=== PATIENT | female | born 1990 | race Caucasian/White ===

== ENCOUNTER 2018-02-20 03:28 | Inpatient (IN) ==
[2018-02-20] MEDS ORDERED: CALCIUM CARBONATE Chewable 500mg TABLET PO PRN (05:43)
[2018-02-20] MEDS ORDERED: LIDOCAINE 1% (10mg/ml) 2mL INJ PF SDV ID PRN (05:43)
[2018-02-20] MEDS ORDERED: ACETAMINOPHEN 500 MG TABLET PO PRN (05:43)
[2018-02-20] MEDS ORDERED: D5LR 1,000 ML IV PRN (05:43)
[2018-02-20] MEDS ORDERED: METHYLERGONOVINE 0.2 MG/ML INJECTION IM PRN (05:43)
[2018-02-20] MEDS ORDERED: CARBOPROST 250 MCG/ML INJECTION IM PRN (05:43)
[2018-02-20] MEDS ORDERED: MAG-AL + SIM ORAL LIQUID 30ml PO PRN (05:43)
[2018-02-20] MEDS ORDERED: OXYTOCIN DRIP 30 UNIT/500 ML ML IV PRN (05:43)
--- OUTSIDE RECORDS SUMMARY | 2018-02-20 06:07 | External Medical Summary | Continuity of Care Document ---
:1990 Author Organization [facility] [employer] Address [address] [place], [place] [id number] Phone Care Team Providers Name Role Phone Ana Denny Unavailable Unavailable Allergies, Adverse Reactions, Alerts Substance Reaction Severity Status No Known Drug Allergies Unknown Active Medications Medication Instructions Dosage Effective Dates (start - Status Comments stop) Gummy 400 mcg-35 - Active mg-25 mg-5 mg chewable tablet Problems Condition Effective Dates (start - stop) Clinical Status Encntr for suprvsn of normal first - preg, second trimester 16 weeks gestation of - Encntr for suprvsn of normal first - preg, first trimester 9 weeks gestation of - Encntr for suprvsn of normal first - preg, first trimester 12 weeks gestation of - Encntr for suprvsn of normal first - preg, first trimester 12 weeks gestation of - Procedures Procedure Date OB Visit No Charge Results Test Name Date and Time Measure Units Reference Range Abnormal Flag Comments Unknown Advance Directives Directive Yes / No Effective Date File Name Unknown Encounters Encounter Practice Location Reason(s) Diagnoses Date Provider Care Team Description For Visit Members Magdaleno Gong Encntr for Simpson In Sample6 suprvsn of -2016 [facility] [place], normal Medical [address], first preg, Center Mirtha Mar[place], second [place] 120, [id number], [email or web address] Gong, [place] weeks [place], tel:[phone] gestation [id number], [address] of [place]. tel:[phone] Magdaleno Gong Encntr for Yessy Referring In [facility] Luzmaria. Provider: Health JOSE RAUL normal 700 Ashley Simpson [address], first preg, Medical [place], VERONICA Tobias, first Center , Ceci [id number], [email or web address] [place] [address], Center Dr [place] weeks Gong, [place] 120, tel:[phone] gestation [place], [place], [address] of [id number], [place], [place]. [id number]. tel:[phone] tel:[phone] Magdaleno Gong Encntr for Simpson In [facility] Ul[facility] Ashley. 700 Health JOSE RAUL, normal Medical [address], first preg, Center Mirtha [place], first [place] 120, [id number], [email or web address] Gong, [place] weeks [place], tel:[phone] gestation [id number], [address] of [place]. tel:[phone] Magdaleno Gong Encntr for Simpson In [facility] Ashley. 700 Health [place], normal Medical [address], first preg, Center Mirtha [place], first [place] 120, [id number], [email or web address] [place]ong, [place] weeks [place], tel:[phone] gestation [id number], [address] of [place]. tel:[phone] Family History Family Member Diagnosis Age At Onset Father Hypertension Paternal Grandfather Hypertension Father Diabetes Paternal Grandfather Diabetes No family history of Colon Cancer No family history of Pulmonary Embolism Maternal Grandfather Cardiovascular Disease Maternal Grandfather Osteoporosis No family history of Ovarian Cancer Paternal Grandmother Breast Cancer No family history of Uterine Cancer Paternal Grandmother Thyroid Disorder No family history of Venous Thrombosis Immunizations Vaccine Date Status Comments Influenza, injectable, completed Source: New Immunization Record quadrivalent, preservative free, 3 yrs or older Payers Payer name Insurance type Covered republican ID Authorization(s) [facility] - [id number] Medicaid [facility] [id number] Medicaid Social History Type Description Quantity Date Captured Alcohol Use Details No Caffeine Use Details Unknown Tobacco Use Status Unknown Smoking Status Never smoker Vital Signs Date / Height Weight BMI Pulse Blood Temperature Respiratory Body Head BMI Time: Rate Pressure Rate Surface Circumference percentile Area 118.20 20.9 104/69 2017 lbs 4 mm[Hg] 8:34 kg/m AM eter (2) Chief Complaint And Reason For Visit Unknown Chief Complaint And Reason For Visit Reason For Referral Reason For Referral Unknown Plan Of Care Date Type Action Status Appointment Olga Salinas BOOKED Appointment Olga Salinas BOOKED Future Order: Radiology Order Nuchal Translucency ([id number]) Ordered Date Type Problem Goal Intervention Status Start Date Unknown. History Of Present Illness Encounter Date Complaint History Of Present Illness This patient has no known history of present illness Functional Status Encounter Date Functional Assessment Cognitive Assessment Unknown Medications Administered Medication Instructions Dosage Effective Dates (start - stop) Status Comments Drug Treatment Unknown Instructions Date Instruction Additional Information HIV and other routine tests risk factors identified by history anticipated course of care nutrition and weight gain counseling, special diet toxoplasmosis precautions (cats / raw meat) exercise indications for ultrasound environmental / work hazards travel tobacco (ask, advise, assess, assist and arrange) alcohol illicit / recreational drugs use of any medications (including supplements, vitamins, herbs, OTC drugs) smoking counseling domestic violence seat belt use genetic testing new ob handbook Zika virus assessment & precautions dentist, wt gain 25-35#
--- OUTSIDE RECORDS SUMMARY | 2018-02-20 06:07 | External Medical Summary | Continuity of Care Document ---
:1990 Author Organization [facility] Address [address] [place], [place] [id number] Phone Care Team Providers Name Role Phone [...] Procedures Procedure Date OB Visit No Charge - TORPEDOMAN'S MATE Immuniz admnin, 1 vac, sngl/combo 19 Yrs + Flu Vaccine - Quadrivalent Results Test Name Date and Time Measure Units Reference Range Abnormal Flag Comments Unknown Advance Directives Directive Yes / No Effective Date File Name Unknown Encounters Encounter Practice Location Reason(s) Diagnoses Date Provider Care Team Description For Visit Members Associates Bel[place]an Encntr for Yessy Referring In [facility] suprvsn of Luzmaria. Provider: John BLUNT, tiffanie 700 Ashley Simpson [address], first preg, Medical K, 700 [place], [place], [facility] Ceci Marino [id number], [address], [place] corina Gong, [place] 120, tel:[phone] gestation [place], [place]ong, [address] of [id number], [place], [place]. [id number]. tel: tel:[phone] Magdaleno Gong Encntr for Simpson In [facility] Ultrasound [facility] Ashley. 700 Health [place], normal Medical [address], first preg, Center Mirtha [place], first [place] 120, [id number], [email or web address] Gong, [place] weeks [place], tel:[phone] gestation [id number], [address] of [place]. tel:[phone] Magdaleno Gong Encntr for Simpson In [facility] Ashley. 700 Health [place], normal Medical [address], first preg, Center Mirtha [place], first [place] 120, [id number], [email or web address] Gong, [place] weeks [place], tel:[phone] gestation [id number], [address] of [place]. tel:[phone] Family History Family Member Diagnosis Age At [...] older Payers Payer name Insurance type Covered green party ID Authorization(s) [facility] [id number] Medicaid [facility] [id number] Medicaid Social History Type Description Quantity Date Captured Alcohol Use Details No Caffeine Use Details Unknown Tobacco Use Status Unknown Smoking Status Never smoker Vital Signs Date / Height Weight BMI Pulse Blood Temperature Respiratory Body Head BMI Time: Rate Pressure Rate Surface Circumference percentile Area 113.00 20.0 lbs 2 mm[Hg] 10:05 kg/m AM eter (2) Chief Complaint And Reason For Visit Unknown Chief Complaint And Reason For Visit Reason For Referral Reason For Referral Unknown Plan Of Care Date Type Action Status Appointment Olga Salinas BOOKED Future Order: Radiology Order Nuchal Translucency ([id number]) Ordered Date Type Problem Goal Intervention Status [...]
--- OUTSIDE RECORDS SUMMARY | 2018-02-20 06:07 | External Medical Summary | Continuity of Care Document ---
:1990 Author Organization [facility] Address [address] [place] [id number] Phone Care Team Providers Name Role Phone [...] of normal first - preg, second trimester 23 weeks gestation of - Encntr for suprvsn of normal first - preg, first trimester 9 weeks gestation of - Encntr for suprvsn of normal first - preg, first trimester 12 weeks gestation of - Encntr for suprvsn of normal first - preg, first trimester 12 weeks gestation of - Encntr for suprvsn of normal first - preg, second trimester 19 weeks gestation of - Encntr for suprvsn of normal first - preg, second trimester 16 weeks gestation of - Encntr for suprvsn of normal first - preg, second trimester 26 weeks gestation of - Encntr for suprvsn of normal first - preg, second trimester 19 weeks gestation of - Procedures Procedure Date OB Visit No Charge Results Test Name Date and Time Measure Units Reference Range Abnormal Flag Comments Unknown Advance Directives Directive Yes / No Effective Date File Name Unknown Encounters Encounter Practice Location Reason(s) Diagnoses Date Provider Care Team Description For Visit Members Magdaleno Gong Encntr for Simpson In [facility] Ashley. 700 Health [place], normal Medical [address], first preg, Center Mirtha [place], second [place] 120, [id number], [email or web address] Gong, [place] weeks [place], tel:[phone] gestation [id number], [address] of [place]. tel:[phone] Magdaleno Gong Encntr for Simpson In [facility] Ashley. 700 Health [place], normal Medical [address], first preg, Center Mirtha [place], second [place] 120, [id number], [email or web address] Gong, [place] weeks [place], tel:[phone] gestation [id number], [address] of [place]. tel:[phone] Magdaleno Gong Encntr for Simpson In [facility] Ashley. 700 Health [place], normal Medical [address], first preg, [place] Mirtha [place], second [place] 120, [id number], [email or web address] Gong, [place] weeks [place], tel:[phone] gestation [id number], [address] of [place]. tel:[phone] Magdaleno Gong [facility]tr [facility] In [facility] [place]. 700 Health [place], normal Medical [address], first preg, Center Mirtha [place], second [place] [address], [id number], [email or web address] Gong, [place] weeks [place], tel:[phone] gestation [id number], [address] of [place]. tel:[phone] Magdaleno Gong Encntr for Simpson In [facility] Ashley. 700 Health [place], normal Medical [address], first preg, Center Mirtha [place], second [place] [address], [id number], [email or web address] Gong, [place] weeks [place], tel:[phone] gestation [id number], [address] of [place]. tel:[phone] Magdaleno Gong Encntr for Yessy Referring In [facility] Luzmaria. Provider: Health JOSE RAUL, normal 700 Ashley Simpson [address], first preg, Medical [place], VERONICA Tobias, [facility] Center , Ceci [id number], [email or web address] [address], Center Dr [place] weeks [place]ong, [place] 120, tel:[phone] gestation [place], [place], [address] of [id number], [place], [place]. [id number]. tel:[phone] tel:[phone] Magdaleno Gong Encntr for Simpson In [facility] Ultras[facility] Ashley. 700 Health [place], normal Medical [address], first preg, Center Mitrha Mar[place], first [place] 120, [id number], [email or web address] Gong, [place] weeks [place], tel:[phone] gestation [id number], [address] of [place]. tel:[phone] Magdaleno Gong Encntr for Simpson In [facility] Ashley. 700 Health [place], normal Medical [address], first preg, Center Mirtha [place], first [place] 120, [id number], [email or web address] Gong, [place] weeks [place], tel:[phone] gestation [id number], [address] of [place]. tel:[phone] Family History Family Member Diagnosis Age At [...] older Payers Payer name Insurance type Covered constitution party ID Authorization(s) [facility] [id number] Medicaid [facility] [id number] Medicaid Social History Type Description Quantity Date Captured Alcohol Use Details No Caffeine Use Details Unknown Tobacco Use Status Unknown Smoking Status Never smoker Vital Signs Date / Height Weight BMI Pulse Blood Temperature Respiratory Body Head BMI Time: Rate Pressure Rate Surface Circumference percentile Area 126.70 22.4 94/2017 lbs 4 mm[Hg] 2:53 kg/m PM eter (2) Chief Complaint And Reason For Visit Unknown Chief Complaint And Reason For Visit Reason For Referral Reason For Referral Unknown Plan Of Care Date Type Action Status Appointment Olga Salinas BOOKED Future Order: Radiology Order Nuchal Translucency ([id number]) Ordered Future Order: Radiology Order Complete OB Ultrasound > 14 Ordered Weeks ([id number]) Date Type Problem Goal Intervention Status Start Date Unknown. History Of Present Illness Encounter Date Complaint History Of Present Illness This patient has no known history of present illness Functional Status Encounter Date Functional Assessment Cognitive Assessment Unknown Medications Administered Medication Instructions Dosage Effective Dates (start - stop) Status Comments Drug Treatment Unknown Instructions Date Instruction Additional Information gestational glucose lab screening HIV and other routine tests risk factors [...]
--- OUTSIDE RECORDS SUMMARY | 2018-02-20 06:07 | External Medical Summary | Continuity of Care Document ---
:1990 Author Organization [facility] Address [address] [place], [place] [address] Phone Care Team Providers Name Role Phone [...] weeks gestation of - Procedures Procedure Date Ultrasound, Nuchal Translucency Measurement Results Test Name Date and Time Measure Units Reference Range Abnormal Flag Comments Unknown Advance Directives Directive Yes / No Effective Date File Name Unknown Encounters Encounter Practice Location Reason(s) Diagnoses Date Provider Care Team Description For Visit Members Magdaleno Gong Encntr for Yessy Referring In [facility] suprvsn of -2016 Luzmaria. Provider: John BLUNT, normal 700 Ashley Simpson [address], first preg, Medical K, 700 [place], [facility] Center [address] Medical [id number], [email or web address] [address] 120, Center [place] weeks Bel[place], [place] 120, tel:[phone] gestation Bel[place]an MARTIN, [address] of [id number], [place], [place]. [id number]. tel:[phone] tel:[phone] Magdaleno Gong Encntr for Simpson In [facility]omens Ul[facility] Ashley. 700 Health [place], normal Medical [address], first preg, Center Mirtha [place], first [place] 120, [id number], [email or web address] Gong, [place] weeks [place], tel:[phone] gestation [id number], [address] of [place]. tel:[phone] Magdaleno Gong Encntr for Simspon In [facility]om[facility] Ashley. 700 Health [place], normal Medical [address], first preg, Center Mirtha [place], first [place] 120, [id number], [email or web address] Gong, [place] weeks [place], tel:[phone] gestation [id number], [address] of [place]. tel:[phone] Family History Family Member Diagnosis Age At [...] name Insurance type Covered republican ID Authorization(s) [facility] [id number] Medicaid [facility] [id number] Medicaid Social History Type Description Quantity Date Captured Unknown Vital Signs Date / Height Weight BMI Pulse Blood Temperature Respiratory Body Head BMI Time: Rate Pressure Rate Surface Circumference percentile Area Unknown Chief Complaint And Reason For Visit Unknown Chief Complaint And Reason For Visit Reason For Referral Reason For Referral Unknown Plan Of Care Date Type Action Status Appointment Olga Salinas BOOKED Future Order: Radiology Order Nuchal Translucency ([id number]) Ordered Date Type Problem Goal Intervention Status [...]
--- OUTSIDE RECORDS SUMMARY | 2018-02-20 06:07 | External Medical Summary | Continuity of Care Document ---
:1990 Author Organization [facility] Address [address] [place], [place] [id number] Phone Care Team Providers Name Role Phone Ana Denny Unavailable Unavailable Allergies, Adverse Reactions, Alerts Substance Reaction Severity Status No Known Drug Allergies Unknown Active Medications Medication Instructions Dosage Effective Dates (start - Status Comments stop) Gummy 400 mcg-35 - Active mg-25 mg-5 mg chewable tablet Problems Condition Effective Dates (start - stop) Clinical Status Encntr for suprvsn of normal first - preg, third trimester 29 weeks gestation of - Encntr for suprvsn of normal first - preg, first trimester 9 weeks gestation of - Matern care for oth or susp poor fetl - grth, third tri, unsp 31 weeks gestation of - Encntr for suprvsn [...] for suprvsn of normal first - preg, third trimester 31 weeks gestation of - Procedures Procedure Date OB Visit No Charge Results Test Name Date and Time Measure Units Reference Range Abnormal Flag Comments Unknown Advance Directives Directive Yes / No Effective Date File Name Unknown Encounters Encounter Practice Location Reason(s) Diagnoses Date Provider Care Team Description For Visit Members Magdaleno Gong Encntr for Simpson [facility] Ashley. 700 Provider: Health JOSE RAUL normal Medical Ashley Simpson [address], first preg, Center N[place] Marino, 700 [place], [place], third [address] 120, Medical [id number], [email or web address] [place] weeks [place], [place] 120, tel:[phone] gestation [id number], Gong, [address] of [place]. [place], tel:[phone]. [id number] tel:[phone] Magdaleno Gong Matern care Simpson In [facility] Ultrasound for oth or -2017 Ashley. 700 Health JOSE RAUL, susp poor Medical [address], fetl grth, [place] Mirtha Marino, [place], third tri, [place] 120, [id number], [email or web address] Gong, [place] weeks [place], tel:[phone] gestation [id number], [address] of [place]. tel:[phone] Magdaleno Gong Encntr for Simpson In [facility] Ashley. 700 Health JOSE RAUL, normal Medical [address], first preg, Center Mirtha Marino [place], third [place] 120, [id number], [email or web address] Gong, [place] weeks [place], tel:[phone] gestation [id number], [address] of [place]. tel:[phone] Magdaleno Gong Encntr for Simpson In [facility] Ashley. 700 Health JOSE RAUL normal Medical [address], first preg, Center Mirtha [place], second [place] 120, [id number], [email or web address] Gong, [place] weeks [place], tel:[phone] gestation [id number], [address] of [place]. tel:[phone] Magdaleno Gong Encntr for Simpson In [facility] Ashley. 700 Health [place], normal Medical [address], first preg, Center Mirtha [place], second [place] 120, [id number], [email or web address] Gong, [place] weeks [place], tel:[phone] gestation [id number], [address] of [place]. tel:[phone] Magdaleno Gong Encntr for Simpson In [facility] Ashley. 700 Health [place], normal Medical [address], first preg, Center Mirtha [place], second [place] 120, [id number], Gong, [place] weeks [place], tel:[phone] gestation [id number], [address] of [place]. tel:[phone] Magdaleno Gong Encntr for Simpson In [facility] Ultrasound [facility] Ashley. 700 Health [place], normal Medical [address], first preg, Center Mirtha [place], second [place] 120, [id number], [email or web address] Gong, [place] weeks [place], tel:[phone] gestation [id number], [address] of [place]. tel:[phone] Magdaleno Gong Encntr for Simpson In [facility] Ashley. 700 Health JOSE RAUL, normal Medical [address], first preg, Center Mirtha [place], second [place] 120, [id number], [email or web address] Gong, [place] weeks [place], tel:[phone] gestation [id number], [address] of [place]. tel:[phone] Magdaleno Gong Encntr for Yessy Referring In [facility] Luzmaria. Provider: Health JOSE RAUL normal 700 Ashley Simpson [address], first preg, Medical [place], VERONICA Tobias, [facility] Ceci Marino , [email or web address] [address] 120, Center [place] weeks Gong, [place] 120, tel:[phone] gestation [place], Gong, [address] of [id number], [place], [place]. [id number]. tel: tel:[phone] Magdaleno Gong Encntr for Simpson In [facility] Ashley. 700 Health [place], normal Medical [address], first preg, Center Mirtha Mar[place], first [place] 120, [id number], [email or web address] Gong, [place] weeks [place], tel:[phone] gestation [id number], [address] of [place]. tel:[phone] Magdaleno Gong Encntr for Simpson [facility] Ashley. 700 Health [place], normal Medical [address], first preg, Center Mirtha Mar[place], first [place] 120, [id number], [email or web address] Gong, [place] weeks [place], tel:[phone] gestation [id number], [address] of [place]. tel:[phone] Family History Family Member Diagnosis Age At [...] Venous Thrombosis Immunizations Vaccine Date Status Comments Tdap completed Source: New Immunization Record Influenza, injectable, completed Source: New Immunization Record quadrivalent, preservative free, 3 yrs or older Payers Payer name Insurance type Covered alliance party ID Authorization(s) [facility] - [id number] Medicaid [facility] - [id number] Medicaid [facility] [place] [id number] Medicaid Social History Type Description Quantity Date Captured Alcohol Use Details No Caffeine Use Details Unknown Tobacco Use Status Unknown Smoking Status Never smoker Vital Signs Date / Height Weight BMI Pulse Blood Temperature Respiratory Body Head BMI Time: Rate Pressure Rate Surface Circumference percentile Area 136.60 24.2 lbs 0 2:40 kg/m PM eter (2) 136.60 24.2 lbs 0 mm[Hg] 2:52 kg/m PM eter (2) Chief Complaint And Reason For Visit Unknown Chief Complaint And Reason For Visit Reason For Referral Reason For Referral Unknown Plan Of Care Date Type Action Status Appointment Olga Salinas BOOKED Future Order: Radiology Order Ultrasound OB Follow-up ([id number]) Ordered Future Order: Radiology Order Nuchal Translucency ([id number]) Ordered Future Order: Radiology Order Complete OB Ultrasound > 14 Ordered Weeks ([id number]) Date Type Problem Goal Intervention Status Start [...] ob handbook Zika virus assessment & precautions dentistfrank gain 25-35#
--- OUTSIDE RECORDS SUMMARY | 2018-02-20 06:08 | External Medical Summary | Continuity of Care Document ---
:1990 Author Organization Via [facility] Allergies Active Description Code Type Severity Reaction Onset Reported/ Identified Relationship Clinical to Patient Status Yes No Known 38094 3 N/A N/A Drug 0 Allergies Yes No Known NKMA N/A N/A 08/16/2014 Medication Allergies Yes No Known No Aller N/A N/A 12/06/2016 Allergies Known gy Aller gies Yes No Known Aller Unknown N/A 08/29/2017 Allergies gy Medications Medication Packaging Start Date Stop Date Route Dosage Sig 1 tabs 05/09/2014 08/16/2014 Oral 7.5 mg meloxicam(Mobic 1 tabs, 7.5 mg oral Oral, BID tablet) 05/09/2014 08/16/2014 Oral 50 mg traMADol(traMADo 50 mg, l) Oral, q6hr 1 tabs 05/09/2014 05/19/2014 Oral HYDROcodone-acet 1 tabs, aminophen(Napanoch Oral, q4hr, 5 mg-325 mg oral 30 tabs, tablet) PRN: as needed for pain 1 tabs 05/09/2014 05/19/2014 Oral 10 mg cyclobenzaprine( 1 tabs, cyclobenzaprine Oral, TID, 10 mg oral 30 tabs, tablet) PRN: as needed for spasm 2 tabs 08/16/2014 Oral 400 mg ibuprofen(ibupro 2 tabs, fen 200 mg oral Oral, q4hr, tablet) 120 tabs, PRN: as needed for pain 1 tabs 04/03/2017 04/10/2017 Oral 500 mg metroNIDAZOLE(me 500 mg=1 troNIDAZOLE 500 tabs, Oral, mg oral tablet) q8hr, for 7 days, 21 tabs, 0 Refill(s) 1 tabs 04/03/2017 04/03/2017 Oral 150 mg fluconazole(Difl 150 mg=1 ucan 150 mg oral tabs, Oral, tablet) Once, 1 tabs, 0 Refill(s) 08/29/2017 PO 1 each DAILY Vitamins Problems Date Dx Attending Type Code Diagnosis Diagnosed By Coded 04/03/2017 Ana Young Final R35.0 Frequency of micturition 08/18/2017 Ashley Frausto Z34.01 Encntr for suprvsn of normal first preg, first trimester 08/18/2017 Ashley Frausto Z3A.12 12 weeks gestation of 08/18/2017 Luzmaria Krishnamurthy Z34.01 Encntr for suprvsn L of normal first preg, first trimester 08/18/2017 Luzmaria Krishnamurthy Z3A.12 12 weeks gestation L of 08/29/2017 EAGLEWARDADDISONDA H60.90 Unspecified otitis EAGLESON, ALEENA M HOSPITALITY 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 externa, M HOSPITALITY HOUSEKEEPER unspecified ear 08/29/2017 ADDISON DAVISDA H60.91 Unspecified otitis EAGLESON, ALEENA M HOSPITALITY HOUSEKEEPER externa, right ear M HOSPITALITY HOUSEKEEPER 10/08/2017 Ashley Frausto Z34.02 Encntr for suprvsn of normal first preg, second trimester 10/08/2017 Ashley Frausto Z3A.19 19 weeks gestation of 12/31/2017 Ashley Frausto O36.5930 Matern care for oth or susp poor fetl grth, third tri, unsp 12/31/2017 Ashley Frausto Z3A.31 31 weeks gestation of Procedures Code Description [place] [address] Culture, 04/03/2017 bacterial; any other source except urine, blood or stool, aerobic, with isolation and presumptive identification of isolates.. 24252 Smear, primary 04/03/2017 source with interpretation; wet mount for infectious agents (eg, saline, Nannette ink, NABOR preps) 21662 Infectious 04/03/2017 agent detection by nucleic acid (DNA or RNA); Chlamydia trachomatis, amplified probe technique.. 63805 Infectious 04/03/2017 agent detection by nucleic acid (DNA or RNA); Neisseria gonorrhoeae, amplified probe technique.. 53591 Periodic 04/03/2017 comprehensive preventive medicine reevaluation and management of an individual including an age and gender appropriate history, examination, counseling/anticipatory guidance/risk factor reduc 37548 Ultrasound, 08/18/2017 Nuchal Translucency Measurement 56238 OB Visit No 08/18/2017 Charge 04394 Ultrasnd exam 10/08/2017 of preg uterus, compl 14912 Ultrasnd preg 12/31/2017 uterus, flwup/repeat Results Test Result Range L905.0615 - 12/06/16 16:03 LSTREPAT-C NEGATIVE NEGATIVE M750.4390 - 12/06/16 16:21 GASTRIN - AMS Source: Throat Collected: 12/06/16 16:21 Hanging Drop - 04/03/17 15:47 Clue Cells Hanging Drop 20 %/epis Epithelials Hanging Drop >50 /LPF Trichomonas Hanging Drop None seen /HPF WBC Hanging Drop 10 /HPF Yeast Hanging Drop Rare /HPF Collection Site vaginal NA Encounters ACCT No. Visit Discharge Status Pt. Type Provider Facility Loc./Unit Complaint Date/Time [id number] 09/12/2013 09/12/2013 CLS Outpatien 13:35:00 23:59:59 adan [id number] 02/16/2018 02/16/2018 CLS Outpatien Frausto, 13:45:00 23:59:59 t Ashley Vaca [id number] 02/10/2018 02/10/2018 CLS Outpatien Frausto, 13:15:00 23:59:59 t Ashley Nola [id number] 02/03/2018 02/03/2018 CLS Outpatien Sobbing, 14:40:00 23:59:59 t Candelario Das [id number] 01/27/2018 01/27/2018 CLS Outpatien Frausto, 14:45:00 23:59:59 adan Vaca [id number] 01/14/2018 01/14/2018 CLS Outpatien Frausto, 13:50:00 23:59:59 adan NashAshley Nola [id number] 12/31/2017 12/31/2017 CLS Outpatien Frausto, 13:50:00 23:59:59 adan NashAshley Nola [id number] 12/31/2017 12/31/2017 CLS Outpatien Frausto, 13:15:00 23:59:59 adan NashAshley Nola [id number] 12/17/2017 12/17/2017 CLS Outpatien Frausto, 14:30:00 23:59:59 adan Vcaa [id number] 11/26/2017 11/26/2017 CLS Outpatien Frausto, 13:40:00 23:59:59 adan Vaca [id number] 11/05/2017 11/05/2017 CLS Outpatien Frausto, 14:45:00 23:59:59 t Aslhey Vaca [id number] 10/08/2017 10/08/2017 CLS Outpatien Frausto, 13:40:00 23:59:59 t Ashley Vaca [id number] 10/08/2017 10/08/2017 CLS Outpatien Frausto, 12:45:00 23:59:59 t Ashley Vaca [id number] 09/16/2017 09/16/2017 CLS Outpatien Frausto, 08:30:00 23:59:59 t Ashley Vaca [id number] 08/28/2017 08/28/2017 CLS Outpatien Frausto, 10:08:00 23:59:59 t Ashley Vaca [id number] 08/18/2017 08/18/2017 CLS Outpatien Yessy, 10:00:00 23:59:59 adan Das [id number] 08/18/2017 08/18/2017 CLS Outpatien Frausto, 09:45:00 23:59:59 t Ashley Vaca [id number] 07/28/2017 07/28/2017 CLS Outpatien Frausto, 14:00:00 23:59:59 adan Vaca [id number] 08/29/2017 08/29/2017 DIS Outpatien DRUSON, [employer] 30 16:59:00 18:52:00 adan [facility] HOSPITALITY HOUSEKEEPER [id number] 12/06/2016 12/06/2016 DIS Emergency Beltran GRANT CCC.NEW 40 16:00:00 16:30:00 [facility] HOSPITALITY HOUSEKEEPER Center [id number] 02/26/2018 PEN Preadcandy FRAUSTO MD, 27 00:00:00 ASHLEY Vaca [id number] 04/04/2017 Document 1556 05:15:56 Registrat ion [id number] 09/06/2015 Document 5825 09:58:25 Registrat ion [id number] 09/06/2015 Document 0935 09:09:35 Registrat ion [id number] 04/03/2017 04/03/2017 DIS Outpatien Tandoc, Via [facility] [employer] 39 14:20:00 23:59:00 t Ana Velasquez [facility]
--- OUTSIDE RECORDS SUMMARY | 2018-02-20 06:08 | External Medical Summary | Continuity of Care Document ---
:1990 Author Organization [facility] Address [address] [place], [place] [phone] Phone Care Team Providers Name Role Phone [...] second trimester 16 weeks gestation of - Procedures Procedure Date Unknown Results Test Name Date and Time Measure Units Reference Range Abnormal Flag Comments Unknown Advance Directives Directive Yes / No Effective Date File Name Unknown Encounters Encounter Practice Location Reason(s) Diagnoses Date Provider Care Team Description For Visit Members Magdaleno Gong Encntr for Simpson In [facility] suprvsn of [employer] [place], normal Medical [address], first preg, [place], second [place], [id number], [email or web address] [place], [place] weeks [place], tel:[phone] gestation [id number], [id number] of [place]. tel:[phone] Magdaleno Gong Simpson In [facility] Ashley. [address] [facility] [place], Medical [address], Center [place], [place], [id number], [place], [place], tel:[phone] [id number], [id number] [place]. tel:[phone] Magdaleno Gong Encntr for Yessy Referring In [facility] Luzmaria. Provider: Health JOSE RAUL normal 700 Ashley Simpson [address], first preg, Medical [place], 700 [place], first Center , [facility] [id number], [email or web address] [place] [address], Center Dr [place] weeks [place], [place], tel:[phone] gestation [place], [place], [address] of [id number], [place], [place]. [id number]. tel:[phone] tel:[phone] Magdaleno Gong [facility] Ashley. [address] [facility] JOSE RAUL, normal Medical [address], first preg, Center [place], first [place], [id number], [email or web address] [place], [place] weeks [place], tel:[phone] gestation [id number], [address] of [place]. tel:[phone] Magdaleno Gong Encntr for [place] In [facility] Ashley. 700 Health JOSE RAUL, normal Medical [address], first preg, Center [place], first [place], [id number], [email or web address] [place], [place] weeks [place], tel:[phone] gestation [id number], [address] of [place]. tel:[phone] Family History Family Member Diagnosis Age At [...] older Payers Payer name Insurance type Covered democrat ID Authorization(s) [facility] [id number] Medicaid [facility] - [id number] Medicaid Social History Type Description Quantity Date [...] BOOKED Future Order: Radiology Order Nuchal Translucency (79105) Ordered Date Type Problem Goal Intervention Status [...]
--- OUTSIDE RECORDS SUMMARY | 2018-02-20 06:08 | External Medical Summary | Continuity of Care Document ---
:1990 Author Organization [facility] Address [address] [place] [phone] Phone Care Team Providers Name Role Phone [...] Members Magdaleno Gong Encntr for Simpson In [employer] suprvsn of [facility] [place], normal Medical [address], first preg, Center [place], second [place], [id number], [email or web address] [place], [place] weeks [place], tel:[phone] gestation [id number], [address] of [place]. tel:[phone] Magdaleno Gong Encntr for [place] In [facility] Ashley. [address] [facility] JOSE RAUL, normal Medical [address], first preg, Center [place], second [place], [id number], [place], [place] weeks [place], tel:[phone] gestation [id number], [address] of [place]. tel:[phone] Magdaleno Gong Encntr for [place] In [facility] Ashley. 700 Health JOSE RAUL, normal Medical [address], first preg, Center [place], second [place], [id number], [email or web address] [place], [place] weeks [place], tel:[phone] gestation [id number], [address] of [place]. tel:[phone] Magdaleno Gong Encntr for Yessy Referring In [facility] Luzmaria. Provider: tiffanie Patel 700 Ashley Simpson [address], first [facility], [facility] [place], [place], first Center [facility] , [email or web address] [place], Center [place] weeks [place], [place] 120, tel:[phone] gestation [place], [place], [address] of [id number], [place], [place]. [id number]. tel:[phone] tel:[phone] Magdaleno Gong Encntr for [place] In [facility] Ashley. 700 Health JOSE RAUL, normal Medical [address], first preg, Center [place], first [place], [id number], [email or web address] [place], [place] weeks [place], tel:[phone] gestation [id number], [address] of [place]. tel:[phone] Magdaleno Gong Encntr for Simpson In [facility] Ashley. 700 Health JOSE RAUL, normal Medical [address], first preg, Center [place], first [place], [id number], [email or web address] [place], [place] weeks [place], tel:[phone] gestation [id number], [address] of [place]. tel:[phone] Family History Family Member Diagnosis Age At [...] Insurance type Covered alliance party ID Authorization(s) [facility] - [id number] Medicaid [facility] - [id number] Medicaid Social History Type Description Quantity Date Captured Alcohol Use Details No Caffeine Use Details Unknown Tobacco Use Status Unknown Smoking Status Never smoker Vital Signs Date / Height Weight BMI Pulse Blood Temperature Respiratory Body Head BMI Time: Rate Pressure Rate Surface Circumference percentile Area 121.60 21.5 / lbs 4 mm[Hg] 1:48 kg/m PM eter (2) Chief Complaint And Reason For Visit Unknown Chief Complaint And Reason For Visit Reason For Referral Reason For Referral Unknown Plan Of Care Date Type Action Status Appointment Olga Salinas BOOKED Future Order: Radiology Order Nuchal Translucency ([id number]) Ordered Future Order: Radiology Order Complete OB Ultrasound > 14 Ordered Weeks (51078) Date Type Problem Goal Intervention Status Start [...]
--- OUTSIDE RECORDS SUMMARY | 2018-02-20 06:08 | External Medical Summary | Continuity of Care Document ---
:1990 Author Organization [facility] Address [address] [place], [place] [phone] Phone Care Team Providers Name Role Phone [...] weeks gestation of - Procedures Procedure Date Ultrasound exam of preg uterus, complete Results Test Name Date and Time Measure Units Reference Range Abnormal Flag Comments Unknown Advance Directives Directive Yes / No Effective Date File Name Unknown Encounters Encounter Practice Location Reason(s) Diagnoses Date Provider Care Team Description For Visit Members Magdaleno Gong Encntr for Simpson In [employer] suprvsn of -2016 Ashley. [address] JOSE RAUL, normal Medical [address], first preg, Center Mir[place], second [place], [id number], [email or web address] [place], [place] weeks [place], tel:[phone] gestation [id number], [address] of [place]. tel:[phone] Magdaleno Gong Encntr for [place] In [facility] Ashley. 700 Health JOSE RAUL, normal Medical [address], first preg, Center [place], second [place], [id number], [email or web address] [place], [place] weeks [place], tel:[phone] gestation [id number], [address] of [place]. tel:[phone] Magdaleno Gong Encntr for Simpson In [facility] Ashley. 700 Health [place], normal Medical [address], first preg, Center [place], second [place] [address], [id number], [email or web address] [place], [place] weeks [place], tel:[phone] gestation [id number], [address] of [place]. tel:[phone] Magdaleno Gong Encntr for Yessy Referring In [facility] Luzmaria. Provider: tiffanie Patel 700 Ashley Simpson [address], first [facility], Ceci Vaca, VERONICA Tobias, first Center Ceci [place] , [email or web address] [place] [address], Center [place] weeks [place], [place], tel:[phone] gestation [place], [place], [address] of [id number], [place], [place]. [id number]. tel:316 tel:[phone] Magdaleno Gong Encntr for Simpson In [facility] Ashley. 700 Health JOSE RAUL, normal Medical [address], first preg, Center [place], first [place], [id number], [email or web address] [place], [place] weeks [place], tel:[phone] gestation [id number], [address] of [place]. tel:[phone] Magdaleno Gong Encntr for Simpson In [facility] Ashley. 700 [facility] [place], normal Medical [address], first preg, Center Mirtha [place], [place], first [place] [address], [id number], [email or web address] [place], [place] weeks [place], tel:[phone] gestation [id number], [address] of [place]. tel:[phone] Family History Family Member Diagnosis Age At [...] older Payers Payer name Insurance type Covered libertarian ID Authorization(s) [facility] [id number] Medicaid [facility] - [id number] Medicaid Social History Type Description Quantity Date [...] Olga Salinas BOOKED Future Order: Radiology Order Complete OB Ultrasound > 14 Ordered Weeks ([id number]) Future Order: Radiology Order Nuchal Translucency ([id number]) Ordered Date Type Problem Goal Intervention Status [...]
--- OUTSIDE RECORDS SUMMARY | 2018-02-20 06:08 | External Medical Summary | Referral Summary ---
:1990 Author Organization Via JOSE RAUL [facility] [place], [facility] Address [address] [place] [address] [place] [address] Care Team Providers Name Role Phone Karri Casey Primary Care Physician Encounter VC Date(s): 04/03/17 - 04/03/17 [facility] [place] [place] [address] [place] Discharge Diagnosis: Urinary frequency Discharge Disposition: 01-Home or Self Care Attending Physician: Ana Young APRN Admitting Physician: Ana Young APRN Vital Signs Most recent to oldest [Reference Range]: 1 Peripheral Pulse Rate [60-100 bpm] 73 bpm (04/03/17 2:28 PM) Blood Pressure [90-140/60-90 mmHg] 108/70 mmHg (04/03/17 2:28 PM) SpO2 98 % (04/03/17 2:28 PM) Problem List Condition Effective Dates Status Health Status Informant Asthma(Confirmed) Active Allergies, Adverse Reactions, Alerts No Known Medication Allergies Medications ibuprofen 200 mg oral tablet 2 tabs, Oral, q4hr, as needed for pain, # 120 tabs, 0 Refill(s) Start Date: 08/16/14 Status: OrderedmetroNIDAZOLE 500 mg oral tablet 500 mg 1 tabs, Oral, q8hr, X 7 days, # 21 tabs, 0 Refill(s), Pharmacy: [facility] #[id number], 1 tabs Oral q8hr,x7 days Start Date: 04/03/17 Stop Date: 04/10/17 Status: OrderedTransderm-Scop 1.5 mg transdermal film, extended release 1 patches, Topical, q72hr, as needed for motion sickness, # 4 Each, 0 Refill(s) , Pharmacy: [facility] #[id number] Start Date: 10/24/14 Status: Ordered Results No data available for this section Immunizations Given and Recorded Vaccine Date Status Refusal Reason tetanus/diphth/pertuss (Tdap) adult/adol 04/11/06 Recorded diphtheria/pertussis, acel/tetanus ped 06/07/96 Recorded hepatitis B pediatric vaccine 10/13/06 Recorded hepatitis B pediatric vaccine 05/12/06 Recorded hepatitis B pediatric vaccine 04/11/06 Recorded measles/mumps/rubella virus vaccine 06/07/96 Recorded poliovirus vaccine, live, trivalent 06/07/96 Recorded Procedures No data available for this section Social History Social History Type Response Smoking Status Never smoker Assessment and Plan Extracted from: Title: Office Visit Note Author: Ana Young APRN Date: 04/03/17 Assessment/Plan Urinary frequency Will obtain urinalysis to evaluate. Will call with results of culture when they become available. Recommended decreasedconsumption of caffeinated beverages Ordered: Periodic Comp Preventive Med 18 to 39 years Est 676[address] Vaginal discharge Patient doesnothave certainty about monogamousrelationship. Will await culturesand report findings when they become available Ordered: Chlamydia/GC Nucleic Acid Screen Genital Culture Hanging Drop Periodic Comp Preventive Med 18 to 39 years Est 89[address] Well female exam with routine gynecological exam Await Pap. Discussed safe sex practices,recommending that she use condoms forprotection from STDs. She does needtetanus booster. 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
--- OUTSIDE RECORDS SUMMARY | 2018-02-20 06:08 | External Medical Summary | Continuity of Care Document ---
:1990 Author Organization [facility] Address [address] [place] [phone] Phone Care Team Providers Name Role Phone [...] weeks gestation of - Procedures Procedure Date No Charge Sonogram Initial OB Visit No Charge Results Test Name Date and Time Measure Units Reference Range Abnormal Flag Comments Panel Description: OBSTETRIC PANEL WHITE BLOOD CELL 10.9 Thousand/uL 3.8-10.8 H COUNT 14:45:00 RED BLOOD CELL 3.83 Million/uL 3.80-5.10 N COUNT 14:45:00 HEMOGLOBIN 12.2 g/dL 11.7-15.5 N 14:45:00 HEMATOCRIT 34.5 % 35.0-45.0 L 14:45:00 MCV 90.1 fL 80.0-100.0 N 14:45:00 MCH 31.9 pg 27.0-33.0 N 14:45:00 MCHC 35.4 g/dL 32.0-36.0 N 14:45:00 RDW 11.3 % 11.0-15.0 N 14:45:00 PLATELET COUNT 230 Thousand/uL 140-400 N 14:45:00 MPV 10.9 fL 7.5-12.5 N 14:45:00 ABSOLUTE 8458 cells/uL 8975-0438 H NEUTROPHILS 14:45:00 ABSOLUTE 1602 cells/uL 850-3900 N LYMPHOCYTES 14:45:00 ABSOLUTE 676 cells/uL 200-950 N MONOCYTES 14:45:00 ABSOLUTE 120 cells/uL 15-500 N EOSINOPHILS 14:45:00 ABSOLUTE 44 cells/uL 0-200 N BASOPHILS 14:45:00 NEUTROPHILS 77.6 % N 14:45:00 LYMPHOCYTES 14.7 % N 14:45:00 MONOCYTES 6.2 % N 14:45:00 EOSINOPHILS 1.1 % N 14:45:00 BASOPHILS 0.4 % N 14:45:00 ANTIBODY SCREEN, NO ANTIBODIES N RBC W/REFL ID, 14:45:00 DETECTED Reference range TITER AND AG No antibodies detected This assay is a screening test for the detection of red blood cell antibodies. The test is not to be used for pretransfusion screening or for the medical management of an alloimmunized . ABO GROUP O 14:45:00 RH TYPE RH(D) 14:45:00 POSITIVE RPR (DX) W/REFL NON-REACTIVE NON-REACTIV N TITER AND 14:45:00 E CONFIRMATORY TESTING HEPATITIS B NON-REACTIVE NON-REACTIV N SURFACE ANTIGEN 14:45:00 E RUBELLA ANTIBODY 1.54 index N Index (IGG) 14:45:00 Interpretation ----- <0.90 Not consistent with Immunity 0.90-0.99 Equivocal > or=1.00 Consistent with Immunity The presence of rubella IgG antibody suggests immunization or past or current infection withrubella virus.Test performed at [facility] [id number] [place] [address]Cnyfmhd r: TRISTIAN MAI DO,MPH Panel Description: HIV 1/2 ANTIGEN/ANTIBODY,FOURTH GENERATION W/RFL HIV NON-REACTIVE NON-REACTIVE N HIV-1 antigen and HIV-1/HIV- 2 antibodies were AG/AB, 14:45:00 notdetected. There is no laboratory evidence of 4TH GEN HIVinfection. PLEASE NOTE: This information has been disclosed toyou from records whose confidentiality may beprotected by state law. If your state requires suchprotection, then the state law prohibits you frommaking any further disclosure of the informationwithout the specific written consent of the personto whom it pertains, or as otherwise permitted by law.A general authorization for the release of medical orother information is NOT sufficient for this purpose. For additional information please refer tohttp://education.[employer]/faq/UEE660(This link is being provided for informational/educational purposes only.) The performance of this assay has not been clinicallyvalidated in patients less than 2 years old. REPORT COMMENT:FASTING:UNKNOWNTest performed at [facility] [id number] [place] [id number]: TRISTIAN MAI DO,MPH Panel Description: Bacteria identified in Urine by Culture CULTURE, URINE, 15:10:00 SEE NOTE CULTURE, URINE, ROUTINE ROUTINE MICRO NUMBER: [id number] TEST STATUS: FINAL SPECIMEN SOURCE: URINE, CLEAN CATCH SPECIMEN QUALITY: ADEQUATE RESULT: No GrowthREPORT COMMENT:RFASTING:UNKNOWNTest performed at [facility] [id number] [place] [id number]: TRISTIAN MAI DO,MPH Panel Description: CHLAMYDIA/N. GONORRHOEAE RNA, TMA CHLAMYDIA NOT DETECTED NOT DETECTED N TRACHOMATIS RNA, 15:18:00 TMA NEISSERIA NOT DETECTED NOT DETECTED N GONORRHOEAE RNA, 15:18:00 TMA [id number] SEE NOTE This test was 15:18:00 performed using the APTIMA COMBO2 Assay([employer] The analytical performance characteristics of this assay, when used to test SurePath specimens havebeen determined by [employer]. REPORT COMMENT:FASTING:UNKNO WNTest performed at [facility] [id number] [place] [address]Atvctapt: TRISTIAN MAI DO,MPH Advance Directives Directive Yes / No Effective Date File Name Unknown Encounters Encounter Practice Location Reason(s) Diagnoses Date Provider Care Team Description For Visit Members Magdaleno Gong Encntr for Yessy Referring In [facility] Luz[place]ia. Provider: [facility] [place] normal [address], [facility], [facility] [place], [address] [place] [address], [facility] [address] [facility] , [email or web address], Center weeks [place], [place] [address], tel:[phone] gestation [place], [place], [id number] of [id number], [place], [place]. [id number]. tel:[phone] tel:[phone] Magdaleno Gong Encntr for [place] In [facility] [place]. [address] [place], normal Medical [address], first preg, [place], first [place] [address], [id number], [email or web address] [place], [place] weeks [place], tel:[phone] gestation [id number], [id number] of [place]. tel:[phone] Magdaleno Gong Encntr for [place] In [facility] Ashley. [address] [place], normal Medical [address], first preg, [place], first [place] [address], [id number], [id number] [place], [place] weeks [place], tel:[phone] gestation [id number], [id number] of [place]. tel:[phone] Family History Family Member Diagnosis Age At [...] Insurance type Covered green party ID Authorization(s) [facility] - [id number] Medicaid [facility] - [id number] Medicaid Social History Type Description Quantity Date Captured Alcohol Use Details No Caffeine Use Details combo 2 cups per day Tobacco Use Status Never smoked tobacco Smoking Status Never smoker Non-Smoking Tobacco Use : No Details Available : No Details Available Details Vital Signs Date / Height Weight BMI Pulse Blood Temperature Respiratory Body Head BMI Time: Rate Pressure Rate Surface Circumference percentile Area 113.90 20.1 / lbs 7 mm[Hg] 2:05 kg/m PM eter (2) Chief Complaint And Reason For Visit Unknown Chief Complaint And Reason For Visit Reason For Referral Reason For Referral Unknown Plan Of Care Date Type Action Status Appointment Olga Salinas BOOKED Future Order: Radiology Order Nuchal Translucency ([id number]) Ordered Date Type Problem Goal Intervention Status [...] smoking counseling domestic violence seat belt use Sep-11-2017 genetic testing new ob handbook Zika virus assessment & precautions dentist, wt gain 25-35#
[2018-02-20] MEDS: LR 1,000 ML IV PRN ×2 (06:25→10:41)
[2018-02-20 06:27] VITALS: BMI 25.7
[2018-02-20 06:35] VITALS: RESP 16
--- NOTE | 2018-02-20 08:26 | Anesthesia Preoperative Report ---
Anesthesia Epidural/Spinal Rec - Date and Time Date: 02/20/18 Procedure: Labor Epidural Plan: Epidural - Vital Signs Vital Signs: Temperature 97.8 F 02/20/18 06:29 Pulse Rate 80 02/20/18 06:29 Respiratory Rate 16 02/20/18 06:29 Blood Pressure 114/61 02/20/18 06:29 Pulse Oximetry 98 02/20/18 06:29 /Para: P:0 - Medictaions & Allergies Inpatient Medications: Current Medications Acetaminophen (Tylenol) 500 - 1,000 mg PO Q4H PRN PRN Reason: Pain Al Hydroxide/Mg Hydroxide (Maalox Plus) 30 ml PO Q3H PRN PRN Reason: Indigestion Calcium Carbonate (Tums) 500 - 1,000 mg PO Q2H PRN PRN Reason: Indigestion Carboprost Tromethamine (Hemabate) 250 mcg IM O PRN PRN Reason: .Downtime Dextrose/Lactated Ringer's (Dextrose 5%-Lactated Ringers) 1,000 mls @ 125 mls/ hr IV .Q8H PRN PRN Reason: Labor Last Admin: 02/20/18 06:48 Dose: 125 mls/hr Lactated Ringer's (Lactated Ringers) 1,000 mls @ 999 mls/hr IV .Q1H1M PRN Last Admin: 02/20/18 06:25 Dose: 999 mls/hr Oxytocin (Pitocin Drip) 30 unit in 500 mls @ 2 mls/hr IV .Q24H PRN; Protocol PRN Reason: Induction/Augmentation Last Admin: 02/20/18 06:47 Dose: 2 mls/hr Lidocaine HCl (Xylocaine-Mpf 1% Vial) 0.2 mg ID O PRN PRN Reason: IV Start Methylergonovine Maleate (Methergine) 0.2 mg IM O PRN Misoprostol (Cytotec) 800 mcg [place] ONCE PRN Allergies/Adverse Reactions: Allergies Allergy/AdvReac Type Severity Reaction Status Date / Time No Known Allergies Allergy Unverified 08/29/17 17:20 - Home Medications Home Medications: Home Medications Medication Instructions Recorded Confirmed Type tab PO DAILY tab 08/29/17 History vitamin,calcium,kbwvoqht-gqht-bjtfs acid tablet - Medical History Respiratory: DENIES: Asthma, Bronchitis, Chronic Obstructive Pulmonary Disease (COPD), Dyspnea, Orthopnea, Pulmonary Embolism, Pneumonia, Upper Respiratory Infection, Pulmonary Edema, Sleep Apnea, Tuberculosis, Other Cardiovascular: DENIES: Abnormal EKG, Angina, Arrhythmia, Congestive Heart Failure, Coronary Artery Disease, Heart Murmur, Hypertension, Hypotension, High Cholesterol, Myocardial Infarction, Rheumatic Fever, Valvular Heart Disease, Other Gastrointestional: DENIES: Obstructive Bowel, Hepatitis, Cirrhosis, Nausea or Vomiting Present, Gastroesophageal Reflux Disease, Gastrointestinal Bleeding, Hiatal Hernia, Ulcer , Morbid Obesity, Other Neuro/Musculoskeletal: Denies: HX.MS.OSAR, Back Problems, Cerebrovascular Accident, Depression, Headaches, Loss of Consciousness, Muscle Weakness, Neuromuscular Disorder, Paralysis, Paresthesia, Syncope, Seizures, Other Renal/Endocrine: DENIES: Diabetes Mellitus Type 1, Diabetes Mellitus Type 2, Renal Failure, Dialysis, Thyroid Disease, Weight Loss, Weight Gain, Other Other History: Reports: Now - Surgical History Reproductive Surgery/Treatment: DENIES: Section Anesthesia Reactions: None Hx Family Anesthesia Reaction: No History of Motion Sickness: No - Social History Smoking Status: Never smoker Second Hand Exposure: No Substance Use Type: does not use Alcohol Intake: former - Pertinent Findings Lab Data: CBC and BMP 02/20/18 06:19 - Physical Exam Respiratory Exam: lungs clear, bilateral breath sounds equal Cardiovascular Exam: regular rate and rhythm, no murmur - Airway Assessment Mallampati Score: II TMD: 3 Fingerbreadths Neck Extension: good Overall Assessment: may be difficult intubation - ASA ASA Score: 2 - Discussion Discussion: Discussed risks/options/alternatives of anesthesia and questions answered. Patient consents. Nursing pain assessment noted. Anesthesia Discussion: spouse Attestation Statement: Prior to the delivery of any anesthetic medication, I examined the patient, developed the plan, obtained the patient's consent and discussed the risk and benefits of the procedure with the patient/guardian.
[2018-02-20] MEDS ORDERED: ROPIVACAINE 1% 10MG/ML INJ 200 MG, SUFentanil 50 MCG in NS 100 ML EPI PRN (12:47)
[2018-02-20] MEDS ORDERED: NALOXONE 0.4 MG/ML INJECTION IVP PRN (12:47)
[2018-02-20] MEDS ORDERED: DiphenhydrAMINE 50 MG/ML INJECTION IVP PRN (12:47)
[2018-02-20] MEDS ORDERED: ONDANSETRON 4 MG/2 ML INJECTION IVP PRN (12:47)
[2018-02-20] MEDS ORDERED: DiphenhydrAMINE 25 MG CAPSULE PO PRN (17:44)
[2018-02-20] MEDS ORDERED: HYDROCORTISONE 2.5% CREAM 30gm RECTALLY PRN (17:44)
[2018-02-20] MEDS ORDERED: OXYTOCIN DRIP 30 UNIT/500 ML ML IV SCH (17:45)
--- NOTE | 2018-02-20 20:36 | Labor and Delivery Note ---
DATE 02/20/2018 Olga is a 27-year-old 1 at 39 weeks 1 day gestational age who was brought in for a Pitocin induction this morning due to PUPPS. Her membranes were ruptured artificially, returning clear fluids. She received an epidural. She progressed steadily throughout labor. She pushed for approximately two hours. At the end, baby rotated from OP to PEDRO PABLO. She had a spontaneous vaginal delivery of a viable female infant, Apgars 8/9, name "Suzanna". The baby was vigorous at delivery so she was placed on mom's abdomen and the cord clamping was delayed for more than five minutes. The placenta delivered spontaneously. She had a right first-degree perineal laceration that was repaired with 2-0 Vicryl. At this point, baby is still [id number] with Mom and hasn't been weighed yet. Mom and baby tolerated the delivery well. [facility]
[2018-02-20] MEDS: IBUPROFEN 800 MG TABLET PO PRN (20:39)
[2018-02-21] MEDS: HYDROCODONE/APAP 5mg/325mg TABLET PO PRN ×4 (05:12→19:36)
--- NOTE | 2018-02-21 09:28 | Anesthesia Postoperative Note ---
- Date and Time Date: 02/21/18 Time: 09:28 - Status Patient Participated in Evaluation: Patient Participated in Person Vital Signs: Temperature 98.4 F 02/21/18 06:00 Pulse Rate 75 02/21/18 06:00 Respiratory Rate 16 02/21/18 06:00 Blood Pressure 105/61 02/21/18 06:00 Pulse Oximetry 98 02/21/18 06:00 Respiratory Function: Airway Patent Mental Status: Alert and Oriented Pain Intensity: 0 Hydration: Taking PO Fluids Complications During Recover: None Apparent - Follow-Up Instructions Instructions: Per Surgeon
[2018-02-21] MEDS: DOCUSATE CALCIUM 240 MG CAPSULE PO SCH (09:42)
[2018-02-21] MEDS: IBUPROFEN 800 MG TABLET PO PRN ×2 (09:42→19:36)
--- NOTE | 2018-02-21 11:21 | OB/GYN Progress Note ---
OB-PP Progress Note - General PPD1 Maternal Group B Strep: Negative Maternal blood type: O+ Maternal Rubella Status: Immune - Subjective Date: 02/21/18 Lochia: Minimal Pain: controlled Voiding: not voiding (Ellis inserted due to urinary retention due to labial edema) - Objective Vital Signs: Last Vital Signs Temp 98.4 F 02/21/18 06:00 Pulse 75 02/21/18 06:00 Resp 16 02/21/18 06:00 BP 105/61 02/21/18 06:00 Pulse Ox 98 02/21/18 06:00 General: alert and oriented Abdomen: fundus firm, non-tender Extremities: non-tender Edema: Severe labial edema. No signs of hematoma. - Assessment Assessment: Comments: Urinary retention from labial edema. - Plan Plan: routine care Likely continue Ellis until tomorrow.
[2018-02-22 08:09] VITALS: BP 103/64; PULSE 65; TEMP 97.8; O2SAT 97
[2018-02-22] MEDS: IBUPROFEN 800 MG TABLET PO PRN (08:50)
[2018-02-22] MEDS: DOCUSATE CALCIUM 240 MG CAPSULE PO SCH (08:50)
--- NOTE | 2018-02-22 09:52 | OB/GYN Progress Note ---
OB-PP Progress Note - General PPD2 Maternal Group B Strep: Negative Maternal blood type: O+ Maternal Rubella Status: Immune - Subjective Date: 02/22/18 Lochia: Minimal Pain: controlled Voiding: other (Ellis just removed.) Nausea or Vomiting Present: No - Objective Vital Signs: Last Vital Signs Temp 97.8 F 02/22/18 08:00 Pulse 65 02/22/18 08:00 Resp 16 02/22/18 08:00 BP 103/64 02/22/18 08:00 Pulse Ox 97 02/22/18 08:00 General: alert and oriented Abdomen: fundus firm, non-tender Extremities: non-tender Edema: Labia with a little less edema than yesterday. - Assessment Assessment: - Plan Plan: routine care, discharge home, continue PNV She needs to be able to void today.
== END 2018-02-22 12:06 | disposition home or self-care (01) | DRG 775 ==
LOC: MC 06:02
PROVIDERS: ADMIT Obstetrics & Gynecology; ATTEND Obstetrics & Gynecology